=== PATIENT | female | born 1955 | race Caucasian/White ===

== ENCOUNTER 2017-03-14 18:22 | Emergency (ER) | payer OTHER ==
[~2017-03-14] VITALS: Ht 172.7 cm; Wt 90.7 kg
[~2017-03-14 18:22] MED LIST: ATORVASTATIN CA20 MG PO; LEVAQUIN500 MG PO; LEVOTHYROXIN0.112 M1 PO; PRINIVIL 5MG5 MG PO
[2017-03-14 18:36] VITALS: BP 130/78
--- NOTE | 2017-03-14 19:12 | ED NECK/BACK PAIN COMPLAINT ---
History of Present Illness General Chief Complaint: Low Back Pain/Injury Stated Complaint: BACK INJ Vital Signs & Intake/Output Vital Signs & Intake/Output Vital Signs Date Time Temp Pulse Resp B/P B/P Pulse O2 O2 Flow FiO2 Mean Ox Delivery Rate 03/14 1836 98.6 90 18 130/78 98 Room Air Allergies Coded Allergies: MDX - [place] Oil (ALMOND OIL) (04/02/11) MDX - Bananas (BANANAS) (04/02/11) MDX - Codeine (CODEINE) (04/02/11) MDX - Ibuprofen (IBUPROFEN) (04/02/11) MDX - Penicillin (PENICILLIN) (04/02/11) Reconcile Medications Atorvastatin Calcium (Lipitor) 20 MG TAB 1 TAB PO DAILY CHOLESTEROL (Reported ) Levofloxacin (Levaquin) 500 MG TAB 1 TAB PO DAILY SINUSITIS Levothyroxine Sodium 0.112 MG TAB 1 TAB PO DAILY THYROID (Reported) Lisinopril (Prinivil) 5 MG TAB 1 TAB PO DAILY HTN (Reported) Triage Note: 61 YO FEMALE TO TRIAGE C/O MID BACK PAIN S/P WASHING HAIR IN SHOWER THIS AM "I FELT SOMETHING PULL" STATES SHE TOOK NAPROSYN AND USED HEAT TODAY WIHTOUT RELIEF. HPI: Please note that this note was created prior to evaluation the patient and she was not evaluated in the emergency room where she eloped prior to being seen Past History Travel History Traveled to [place] past 21 day No Medical History Cardiovascular: hypertension, hyperlipidemia Endocrine: hypothyroidism Psychosocial History What is your primary language Gambian Tobacco Use: Never used Departure Departure Disposition: ER WALKOUT Condition: Stable Referrals: SHIREEN LAWRENCE,HADYEN Carter (PCP/Family) Departure Forms: Customer Survey General Discharge Information
== END 2017-03-14 19:00 | disposition admitted as inpatient to this hospital (09) ==
LOC: ERH 18:22
DX: M54.9 Dorsalgia, unspecified (principal); Z53.21 Procedure and treatment not carried out due to patient leaving prior to being seen by health care provider